=== PATIENT | female | born 1965 | race Caucasian/White ===

== ENCOUNTER 2021-12-20 17:15 | Inpatient (IN) | payer MEDICARE, OTHER ==
[~2021-12-20] VITALS: Ht 157.5 cm; Wt 75.7 kg
[2021-12-20 17:20] VITALS: BP 149/94
--- NOTE | 2021-12-20 18:31 | NUR ---
WALKED IN WITH CRUTCHES C/O L KNEE PAIN ONSET 3 WKS. PT STATES POST OP 3 WKS ON THE LEFT KNEE BUT STATES PAIN AND SWELLING WORSENING. DENIES FEVER OR CHILLS. DENIES ANY DRAINAGE. SWELLING NOTED ON THE LEFT LOWER EXT. AAOX4 ,AMBULATORY. PMH: DENIES NKA
--- NOTE | 2021-12-20 18:31 | NUR ---
PT BACK FROM XR
--- NOTE | 2021-12-20 19:20 | NUR ---
56/F C/O LEFT KNEE PAIN X3 WEEKS, REPORTS SHE HAD SURGERY 3 WEEKS AGO BUT FEELS PAIN AND SWELLING HAS WORSENED. DENIES FEVERS OR CHILLS, SWELLING NOTED FROM KNEE TO ANKLE. PMH: DENIES NKA
[2021-12-20 20:36] LABS: BASOPHILS # (AUTO) 0.1 K/uL (0.00-0.22); BASOPHILS % (AUTO) 0.9 % (0.0-2.0); EOSINOPHILS # (AUTO) 0.1 K/uL (0-0.4); EOSINOPHILS % (AUTO) 2.2 % (0.0-4.0); HEMATOCRIT 39.2 % (36-48); HEMOGLOBIN 13.1 g/dL (12.0-16.0); LYMPHOCYTES # (AUTO) 1.7 K/uL (2.5-16.5); LYMPHOCYTES % (AUTO) 26.1 % (20.5-51.1); MEAN CORPUSCULAR HEMOGLOBIN 31 pg (27-31); MEAN CORPUSCULAR HGB CONC 34 g/dL (33-37); MONOCYTES # (AUTO) 0.4 K/uL (0.8-1.0); MONOCYTES % (AUTO) 5.5 % (1.7-9.3); NEUTROPHILS # (AUTO) 4.2 K/uL (1.8-7.7); NEUTROPHILS % (AUTO) 65.3 % (42.2-75.2); PLATELET COUNT (AUTO) 136 K/uL (140-450); RED BLOOD CELL COUNT(AUTO) 4.26 MIL/uL (4.20-5.40); RED CELL DISTRIBUTION WIDTH 13.2 % (11.6-13.7); WHITE BLOOD COUNT (AUTO) 6.5 K/uL (4.8-10.8)
[2021-12-20] MEDS ORDERED: HEPARIN PER PHARMACY MC STA (20:41)
[2021-12-20] MEDS ORDERED: hePARIN / DEXT 5% PREMIX 250 ML IV ONE (20:45)
[2021-12-20 20:47] LABS: ANION GAP 10.9 (8-16); CARBON DIOXIDE 27.5 mmol/L (21-32); CREATININE 0.8 mg/dL (0.6-1.3); POTASSIUM 3.4 mmol/L (3.5-5.1)
[2021-12-20] MEDS ORDERED: LIDOCAINE 5% 1 EA PATCH TP STA (21:01)
[2021-12-20 21:02] LABS: PROTHROMBIN TIME 10.4 secs (10.8-13.4)
[2021-12-20] MEDS ORDERED: DOCUSATE SODIUM 100 MG GELCAP PO PRN (21:25)
[2021-12-20] MEDS ORDERED: guaiFENesin DM 200/20 MG-10 ML 10 ML UDC PO PRN (21:25)
[2021-12-20] MEDS ORDERED: POTASSIUM CHLORIDE 10 MEQ TABER PO PRN (21:25)
[2021-12-20] MEDS ORDERED: ZOLPIDEM 5 MG TAB PO PRN (21:25)
[2021-12-20] MEDS ORDERED: MORPHINE SULFATE 2 MG/ML SYR IVP PRN (21:25)
[2021-12-20] MEDS ORDERED: ACETAMINOPHEN 325 MG TAB PO PRN (21:25)
[2021-12-20] MEDS ORDERED: ONDANSETRON 4 MG/2 ML VIAL IM/IVP PRN (21:25)
[2021-12-20] MEDS ORDERED: HYDROcodone/APAP 7.5/325 MG 1 TAB PO PRN (21:25)
[2021-12-20 21:53] LABS: MAGNESIUM 2.1 mg/dL (1.8-2.4); PHOSPHORUS 3.7 mg/dL (2.5-4.9)
--- NOTE | 2021-12-20 22:01 | NUR ---
RT AT BEDSIDE OBTAINING EKG
--- NOTE | 2021-12-20 22:01 | NUR ---
COVID/DINESH SWAB OBTAINED AND WALKED TO LAB
[2021-12-21] MEDS: APIXABAN 2.5 MG TAB PO SCH ×2 (00:31→10:26)
--- NOTE | 2021-12-21 04:25 | NUR ---
Patient appears to be resting comfortably in bed. Vital Signs within normal limits. Respirations even and unlabored.
[2021-12-21 06:38] LABS: PROTHROMBIN TIME 11.6 secs (10.8-13.4)
--- NOTE | 2021-12-21 07:10 | NUR ---
Pt report given to KASIE ORELLANA. Transfer of care at this time.
[2021-12-21 07:19] LABS: BASOPHILS % (AUTO) 0.8 % (0.0-2.0); EOSINOPHILS # (AUTO) 0.1 K/uL (0-0.4); EOSINOPHILS % (AUTO) 2.3 % (0.0-4.0); HEMATOCRIT 36.7 % (36-48); HEMOGLOBIN 12.3 g/dL (12.0-16.0); LYMPHOCYTES # (AUTO) 1.7 K/uL (2.5-16.5); LYMPHOCYTES % (AUTO) 29.5 % (20.5-51.1); MEAN CORPUSCULAR HEMOGLOBIN 31 pg (27-31); MEAN CORPUSCULAR HGB CONC 34 g/dL (33-37); MEAN CORPUSCULAR VOLUME 91.5 fL (80-94); MONOCYTES # (AUTO) 0.3 K/uL (0.8-1.0); NEUTROPHILS # (AUTO) 3.6 K/uL (1.8-7.7); NEUTROPHILS % (AUTO) 62.4 % (42.2-75.2); PLATELET COUNT (AUTO) 136 K/uL (140-450); RED BLOOD CELL COUNT(AUTO) 4.01 MIL/uL (4.20-5.40); RED CELL DISTRIBUTION WIDTH 13.3 % (11.6-13.7); WHITE BLOOD COUNT (AUTO) 5.8 K/uL (4.8-10.8)
[2021-12-21 07:20] LABS: CARBON DIOXIDE 26.8 mmol/L (21-32); CREATININE 0.7 mg/dL (0.6-1.3); POTASSIUM 3.8 mmol/L (3.5-5.1)
[2021-12-21] MEDS ORDERED: PANTOPRAZOLE 40 MG TABEC PO SCH (09:00)
[2021-12-21] MEDS ORDERED: APIXABAN 2.5 MG TAB ONE (10:25)
--- NOTE | 2021-12-21 10:27 | NUR ---
md ny in room for pt evaluation. pt states knee pain is controlled at this time. Patient appears to be resting comfortably in bed. Vital Signs within normal limits. Respirations even and unlabored.
[2021-12-21] MEDS ORDERED: APIX5TAB PO (18:24)
[2021-12-21 18:53] VITALS: BP 111/56
--- NOTE | 2021-12-21 18:54 | NUR ---
Patient discharged with v/s stable. Written and verbal after care instructions given and explained. Patient alert, oriented and verbalized understanding of instructions. Ambulatory with . All questions addressed prior to discharge. ID band removed. Patient advised to follow up with PMD. Rx of ELIQUIS given. Patient educated on indication of medication including possible reaction and side effects. Opportunity to ask questions provided and answered.
--- NOTE | 2021-12-24 14:13 | NUR ---
LATE ENTRY- IV HEPARIN DRIP DISCONTINUED AT 2126
== END 2021-12-21 18:54 | disposition home or self-care (01) | DRG 301 ==
LOC: MED 17:15 → MMU 21:27
PROVIDERS: ADMIT Student in an Organized Health Care Education/Training Program; ATTEND Student in an Organized Health Care Education/Training Program
DX: I82.402 Acute embolism and thrombosis of unspecified deep veins of left lower extremity (principal); E87.6 Hypokalemia; R73.9 Hyperglycemia, unspecified; Z20.822 Contact with and (suspected) exposure to COVID-19; Z79.01 Long term (current) use of anticoagulants
CPT/HCPCS: 36415; 73562; 80048; 83690; 83735; 83880; 84100; 85025; 85610; 85730; 93005; 93971; 96361; 96374; 99285; J1644; J2405; J7030; Q0092

== ENCOUNTER 2021-12-25 09:19 | Inpatient (IN) | payer OTHER ==
[~2021-12-25] VITALS: Ht 157.5 cm; Wt 77.1 kg
[~2021-12-25 09:19] MED LIST: APIX5TAB PO
[2021-12-25 09:34] VITALS: BP 124/88
--- NOTE | 2021-12-25 09:37 | NUR ---
WHEELCHAIRED INTO ED C/O SOB ONSET THURSDAY. PT HAD L KNEE SX 3 WKS AGO AND WAS ADMITTED 5 DAYS AGO FOR CLOT FOUND ON LEFT KNEE. PT WAS DC BUT HAS NEW ONSET SOB SINCE THURSDAY. DENIES CP BUT STATES RIGHT RIB PAIN. ON ROOM AIR.ON MONITOR. VITALS STABLE. AAOX4, AMBULATORY WITH CRUTCHES. STATES SOB WORSE WITH MOVEMENT.
[2021-12-25 10:47] LABS: BASOPHILS # (AUTO) 0.1 K/uL (0.00-0.22); BASOPHILS % (AUTO) 1.2 % (0.0-2.0); EOSINOPHILS # (AUTO) 0.2 K/uL (0-0.4); EOSINOPHILS % (AUTO) 2.7 % (0.0-4.0); HEMATOCRIT 41.4 % (36-48); HEMOGLOBIN 13.8 g/dL (12.0-16.0); LYMPHOCYTES # (AUTO) 1.4 K/uL (2.5-16.5); LYMPHOCYTES % (AUTO) 23.8 % (20.5-51.1); MEAN CORPUSCULAR HEMOGLOBIN 31 pg (27-31); MEAN CORPUSCULAR HGB CONC 33 g/dL (33-37); MEAN CORPUSCULAR VOLUME 92.2 fL (80-94); MONOCYTES # (AUTO) 0.4 K/uL (0.8-1.0); MONOCYTES % (AUTO) 5.9 % (1.7-9.3); NEUTROPHILS % (AUTO) 66.4 % (42.2-75.2); PLATELET COUNT (AUTO) 186 K/uL (140-450); RED BLOOD CELL COUNT(AUTO) 4.49 MIL/uL (4.20-5.40); RED CELL DISTRIBUTION WIDTH 13.5 % (11.6-13.7)
[2021-12-25 11:05] LABS: PROTHROMBIN TIME 10.9 secs (10.8-13.4)
[2021-12-25 11:13] LABS: ALBUMIN 3.7 g/dL (3.4-5.0); CARBON DIOXIDE 27.9 mmol/L (21-32); CREATININE 0.8 mg/dL (0.6-1.3); POTASSIUM 4.9 mmol/L (3.5-5.1); TOTAL BILIRUBIN 0.4 mg/dL (0.0-1.0)
--- NOTE | 2021-12-25 11:27 | NUR ---
PT WENT FOR CTA
--- NOTE | 2021-12-25 11:45 | NUR ---
PT BACK FROM CTA
--- NOTE | 2021-12-25 13:30 | NUR ---
SOCHELLYA SWAB SENT TO LAB
[2021-12-25] MEDS ORDERED: SODIUM PHOS / POTASSIUM PHOS 1 PKT PDR PO PRN (13:40)
[2021-12-25] MEDS ORDERED: POTASSIUM CHLORIDE 10 MEQ TABER PO PRN (13:40)
[2021-12-25] MEDS ORDERED: ONDANSETRON 4 MG/2 ML VIAL IM/IVP PRN (13:40)
[2021-12-25] MEDS ORDERED: DOCUSATE SODIUM 100 MG GELCAP PO PRN (13:40)
[2021-12-25] MEDS ORDERED: MAGNESIUM OXIDE 400 MG TAB PO PRN (13:40)
[2021-12-25] MEDS ORDERED: MORPHINE SULFATE 2 MG/ML SYR IVP PRN (13:40)
[2021-12-25] MEDS ORDERED: HYDROcodone/APAP 5/325 MG 1 TAB TAB PO PRN (13:40)
[2021-12-25] MEDS ORDERED: ACETAMINOPHEN 325 MG TAB PO PRN (13:40)
[2021-12-25 14:32] LABS: MAGNESIUM 2.2 mg/dL (1.8-2.4); PHOSPHORUS 3.9 mg/dL (2.5-4.9)
--- NOTE | 2021-12-25 14:42 | NUR ---
ATTEMTED ABG, PT DID NOT TOLERATE. WILL TRY AGAIN LATER.
[2021-12-25 14:50] VITALS: BP 111/64
--- NOTE | 2021-12-25 14:55 | NUR ---
PT ARRIVED VIA GURNEY FROM ER TO ICU2. RECEIVED BEDSIDE REPORT FROM SHAE BAGLEY RN FOR CONTINUITY OF CARE. PT AAOX4. ON RM AIR. SR ON BEDSIDE MONITOR. 20G TO R AC, SALINE LOCK, PATENT. BOWEL SOUNDS ACTIVE. CONTINENT OF BOWEL AND BLADDER. VOIDS FREELY. AMBULATORY W CRUTCHES, L KNEE IMPAIRED. SKIN INTACT. ON STANDARD PRECAUTIONS. CALL LIGHT WITHIN REACH. SAFETY PRECAUTIONS MET. INITIAL ASSESSMENT COMPLETE. WILL CONTINUE TO CLOSELY MONITOR.
--- NOTE | 2021-12-25 14:58 | NUR ---
Patient will be admitted to care of DR. MORAN. Admited to TELE. Will go to room ICU2. Belongings list completed. Report to BAYRON FERRO.
[2021-12-25] MEDS: hePARIN / DEXT 5% PREMIX 250 ML IV SCH (15:20)
[2021-12-25 16:00] VITALS: BP 121/75
--- NOTE | 2021-12-25 17:50 | NUR ---
PT PARTNER, SEAN, VISITING AT BEDSIDE.
--- NOTE | 2021-12-25 19:24 | NUR ---
endorsed bedside report to [facility] rn for continuity of care. vss, pt in no acute distress. all questions answered.
--- NOTE | 2021-12-25 19:25 | NUR ---
RECEIVED REPORT FROM AM SHIFT KASIE VERMA.
--- NOTE | 2021-12-25 21:05 | NUR ---
PATIENT ALERT AND ORIENTED X4. ABLE TO MAKE NEEDS KNOWN. LUNGS CLEAR TO AUSCULTATION. ACTIVE BOWEL SOUNDS AND PATIENT IS ON CARDIAC DIET. CONTINENT WITH BOWEL AND BLADDER. SINUS RHYTHM ON MONITOR. IV SITE TO RAC 20 GAUGE. HEPARIN DRIP RUNNING AT 1100 IU/HR. SKIN IS INTACT. DENIES COMPLAINTS OF ANY PAIN WHEN LAYING DOWN. NEXT SCHEDULED PTT IS 29.7.
[2021-12-25 23:12] VITALS: BP 112/67
--- NOTE | 2021-12-26 00:18 | NUR ---
PATIENT'S VITALS NORMAL ON MONITOR. SLEEPING AT THIS TIME. RESPIRATIONS UNLABORED.
--- NOTE | 2021-12-26 02:41 | NUR ---
NO COMPLAINTS OF PAIN. VITALS NORMAL AT THIS TIME OF NOTE.
--- NOTE | 2021-12-26 03:38 | NUR ---
LODGING FACILITIES MANAGER AT BEDSIDE DRAWING PTT.
[2021-12-26 03:42] LABS: BASOPHILS # (AUTO) 0.1 K/uL (0.00-0.22); EOSINOPHILS # (AUTO) 0.2 K/uL (0-0.4); EOSINOPHILS % (AUTO) 3.7 % (0.0-4.0); HEMATOCRIT 39.2 % (36-48); HEMOGLOBIN 13.2 g/dL (12.0-16.0); LYMPHOCYTES # (AUTO) 1.9 K/uL (2.5-16.5); LYMPHOCYTES % (AUTO) 34.6 % (20.5-51.1); MEAN CORPUSCULAR HEMOGLOBIN 31 pg (27-31); MEAN CORPUSCULAR HGB CONC 34 g/dL (33-37); MEAN CORPUSCULAR VOLUME 91.4 fL (80-94); MONOCYTES # (AUTO) 0.4 K/uL (0.8-1.0); NEUTROPHILS % (AUTO) 53.7 % (42.2-75.2); PLATELET COUNT (AUTO) 193 K/uL (140-450); RED BLOOD CELL COUNT(AUTO) 4.29 MIL/uL (4.20-5.40); RED CELL DISTRIBUTION WIDTH 13.6 % (11.6-13.7); WHITE BLOOD COUNT (AUTO) 5.6 K/uL (4.8-10.8)
[2021-12-26 04:00] VITALS: BP 118/66
[2021-12-26 04:02] LABS: ANION GAP 13.6 (8-16); CARBON DIOXIDE 26.2 mmol/L (21-32); CREATININE 0.8 mg/dL (0.6-1.3); POTASSIUM 3.8 mmol/L (3.5-5.1)
--- NOTE | 2021-12-26 04:25 | NUR ---
PTT IS 64.6. NO CHANGE TO HEPARIN DRIP RATE PER PROTOCOL.
--- NOTE | 2021-12-26 06:33 | NUR ---
RECEIVED PATIENT FROM ICU. PATIENT IS AWAKE,ALERT AND ORIENTED. DENIES PAIN AT THIS TIME. NO DISTRESS NOTED. ABLE TO AMBULATE WITH CRUTCHES. HEPARIN DRIP AT 1100 UNITS/HR . SKIN WARM AND DRY TO TOUCH. ORIENTED TO MST ROUTINE. BED IN THE LOWEST AND LOCKED POSITION FOR SAFETY, CALL LIGHT IN REACH.
[2021-12-26 06:40] VITALS: BP 103/68
--- NOTE | 2021-12-26 06:41 | NUR ---
PATIENT TRANSFERRED TO [facility] WITH KASIE PEGUERO AND FLOWER. REPORT GIVEN TO [facility] KASIE RODRIGUEZ.
--- NOTE | 2021-12-26 07:18 | NUR ---
ENDORSED CARE TO AM RN FOR CONTINUITY OF CARE.
--- NOTE | 2021-12-26 07:30 | NUR ---
RECEIVED REPORT FROM NIGHTSHIFT NURSE. PT A/O X4. ABLE TO MAKE NEEDS KNOWN. NO SOB OR RESPIRATORY DISTRESS. ON RA. DENIES PAIN AT THIS TIME. EXPLAINED WHEN BREAKFAST TRAYS WILL BE DELIVERED. PT VERBALIZED UNDERSTANDING. CRUTCHES AT BEDSIDE. HEPARIN DRIP @ 1100 UNITS/HR PER PHARMACY. NEEDS ALL MET AT THIS TIME. SAFETY MEASURES IN PLACE.
[2021-12-26 08:00] VITALS: BP 111/73
[2021-12-26] MEDS: PANTOPRAZOLE 40 MG TABEC PO SCH (08:43)
--- NOTE | 2021-12-26 08:51 | NUR ---
PATIENT HAS BEEN SCREENED AND CATEGORIZED MODERATE NUTRITION RISK. PATIENT WILL BE SEEN WITHIN 3-5 DAYS OF ADMISSION. 12/28/21-12/30/21 REVIEWED BY LUIS FOSTER RD
--- NOTE | 2021-12-26 10:30 | NUR ---
CONTACTED MD REGARDING PT WITH BLOOD IN SPUTUM ON TISSUE PAPER. MD AT BEDSIDE WITH PT.
[2021-12-26 12:00] VITALS: BP 104/63
[2021-12-26] MEDS: HEPARIN PER PHARMACY MC PRN (13:22)
[2021-12-26] MEDS: hePARIN / DEXT 5% PREMIX 250 ML IV SCH (13:24)
--- NOTE | 2021-12-26 14:55 | NUR ---
DC PLANNING MARJORIE MET WITH PATIENT AT BEDSIDE TO COMPLETE ASSESSMENT. PATIENT REPORTS RESIDING WITH HER PARTNER AT THE ADDRESS ON FILE. PATIENT IDENTIFIED BALBIR RIVAS, SISTER IN LAW, EMERGENCY CONTACT. PATIENT DENIES HAVING AD IN PLACE AND ACCEPTED AD OFFERED BY MARJORIE. PATIENT REPORTS MEETING WITH HER PCP REGULARLY; LAST VISIT OCTOBER 2021. PATIENT REPORTS NEXT PCP VISIT IS SCHEDULED FOR SOMETIME IN MAR. PATIENT REPORTS ALSO BEING FOLLOWED BY A MALVIN LYLES DR A RESULT OF A FALL THAT OCCURRED AT HER PLACE OF EMPLOYMENT. PATIENT REPORTS VISIT WITH MALVIN CONTRERAS DR., IS SCHEDULED FOR 12/30/21. PATIENT DENIES TAKING MEDICATION AT THIS TIME, HOWEVER, REPORTS UTILIZING RX LIDOCAINE PATCHES, NEEDED FOR PAIN. PATIENT DENIES BARRIERS IN ACCESSING MEDICATIONS AND REPORTS RECEIVING MEDICATIONS FROM [facility], WHEN NEEDED. PATIENT REPORTS BARRIERS IN ADEQUATE FOOD SOURCES. PATIENT ACCEPTED EMERGENCY ASSISTANCE RESOURCES PROVIDED BY MARJORIE. PATIENT REPORTS BEING INDEPENDENT IN ALL ACTIVITIES PRIOR TO HER FALL THAT OCCURRED IN . PATIENT REPORTS RECENT SURGERY ON 11/29/21. PATIENT REPORTS CURRENT USE OF FWW AND CRUTCHES, WHEN NEEDED. PATIENT REPORTS SHE DOES NOT REQUIRE ASSISTANCE WITH ADL'S. PATIENT DENIES MH/SA HX. PATIENT REPORTS DC PLAN IS TO RETURN HOME WITH PARTNER PROVIDING TRANSPORTATION AND AIDING IN CARE, IF REQUIRED. Addendum: 12/27/21 at 1011 by Nitin SILVERMAN PER ATTENDING , PATIENT IS A POSSIBLE DC FOR 12/28. TRANSPORTATION WILL NEED TO BE SET UP WITH [facility] AT [phone] Addendum: 12/27/21 at 1055 by Nitin Connell SS PLEASE DISREGARD ADDENDUM NOTE ABOVE. MADE IN ERROR. Addendum: 12/27/21 at 1104 by Nitin Connell SS SPOKE TO PATIENT. PATIENT PROVIDED WORKERS COMP SLIVER MACHINE OPERATOR LEONIE HARRIS [phone]. PATIENT REPORTS APPT WITH WORKERS DR CRISELDA CONTRERAS DR ON 12/30 WHO WILL SET UP OUTPATIENT PT.
[2021-12-26 16:00] VITALS: BP 107/49
--- NOTE | 2021-12-26 18:48 | NUR ---
HEPARIN DRIP INFUSING @ 1100 UNITS/HR ON RAC #20. PT WITH DINNER AT BEDSIDE. AT BEDSIDE. NEEDS ALL MET. ENCOURAGE TO USE CALL LIGHT. ALL SAFETY MEASURES IN PLACE.
--- NOTE | 2021-12-26 19:26 | NUR ---
ENDORSED PLAN OF CARE TO NIGHTSHIFT NURSE.
--- NOTE | 2021-12-26 19:30 | NUR ---
RECEIVED REPORT FROM AM NURSE FOR CONTINUITY OF CARE. PT IS STABLE AWAKE A&OX4.SITTING UP IN BED EATING AND TALKING WITH VISITOR. DENIES PAIN. ON RM AIR/O2 WITH NO ACUTE DISTRESS. RR EVEN AND UNLABORED WITH EQUAL CHEST RISE. GI INTACT.L KNEE IS UP ON A PILLOW SKIN IS INTACT. IV RAC 20G INFUSING HEPARIN DRIP @11ML/HR. CRUTCHES AT BEDSIDE. L KNEE STILL SWOLLEN FROM MENISCUS SURGERY, Thu12/27/21 WILL BE 4 WEEKS. MEASURED: L KNEE IS 16.5 INCHES CIRCUMFERENCE ACROSS PATELLA. L CALF IS 13.5 INCHES AROUND. PT IS AMBULATORY WITH STANDBY ASSIST AND CONTINENT. ALL SAFETY MEASURES IN PLACE. BED IN LOW AND LOCKED POSITION. CALL LIGHT WITHIN REACH. WILL CONTINUE TO MONITOR.
[2021-12-26 20:00] VITALS: BP 134/65
--- NOTE | 2021-12-26 22:10 | NUR ---
FREQ ROUNDS. PT C/O L ARM PAIN WHEN SHE FLEXES OR BENDS HER ARM UP TOWARD HER CHEST. RN NOTICED SWELLING IN L ARM INNER ELBOW. PT STATES " IT FEELS LIKE SOMETHING IS POKING ME WHEN I FLEX/BEND MY ARM UP. " THERE IS NO PAIN WHEN I ELEVATE IT ON A PILLOW. WILL CONTINUE WITH FREQ ROUNDS.
[2021-12-27] VITALS: BP 107/74
[2021-12-27 04:00] VITALS: BP 106/72
[2021-12-27 07:13] LABS: BASOPHILS % (AUTO) 0.2 % (0.0-2.0); EOSINOPHILS # (AUTO) 0.2 K/uL (0-0.4); HEMATOCRIT 39.8 % (36-48); HEMOGLOBIN 13.2 g/dL (12.0-16.0); LYMPHOCYTES # (AUTO) 1.5 K/uL (2.5-16.5); LYMPHOCYTES % (AUTO) 35.2 % (20.5-51.1); MEAN CORPUSCULAR HEMOGLOBIN 31 pg (27-31); MEAN CORPUSCULAR HGB CONC 33 g/dL (33-37); MEAN CORPUSCULAR VOLUME 92.2 fL (80-94); MONOCYTES # (AUTO) 0.3 K/uL (0.8-1.0); MONOCYTES % (AUTO) 7.5 % (1.7-9.3); NEUTROPHILS # (AUTO) 2.3 K/uL (1.8-7.7); NEUTROPHILS % (AUTO) 53.1 % (42.2-75.2); PLATELET COUNT (AUTO) 195 K/uL (140-450); RED BLOOD CELL COUNT(AUTO) 4.32 MIL/uL (4.20-5.40); RED CELL DISTRIBUTION WIDTH 13.4 % (11.6-13.7); WHITE BLOOD COUNT (AUTO) 4.4 K/uL (4.8-10.8)
--- NOTE | 2021-12-27 07:15 | NUR ---
ENDORSED PT REPORT TO AM NURSE FOR CONTINUITY OF CARE. PT IS STABLE. RR EVEN AND UNLABORED WITH EQUAL CHEST RISE. RAC 20G IV REMAINS PATENT. HEPARIN DRIP INFUSING @11ML /HR. ALL NEEDS MET THROUGHOUT THE SHIFT.
--- NOTE | 2021-12-27 07:19 | NUR ---
RECEIVED REPORT FROM NIGHTSHIFT NURSE. PT A/O X4. ABLE TO MAKE NEEDS KNOWN. DENIES PAIN. STATES PAIN OCCURS ON L KNEE ONLY WITH PRESSURE PLACED. ALSO STATES R LOWER LOBE SHARP PAIN ONLY WITH COUGHING OR POSITIONAL. REFUSE PAIN MEDS. ON HEPARIN DRIP @ 11ML/HR. NO SOB NOTED. ON RA. CRUTCHES AT BEDSIDE. NEEDS ALL MET AT THIS TIME. ALL SAFETY MEASURES IN PLACE.
[2021-12-27 07:40] LABS: ANION GAP 12.2 (8-16); CARBON DIOXIDE 28.4 mmol/L (21-32); CREATININE 0.8 mg/dL (0.6-1.3); POTASSIUM 4.6 mmol/L (3.5-5.1)
[2021-12-27 08:00] VITALS: BP 115/75
[2021-12-27] MEDS: PANTOPRAZOLE 40 MG TABEC PO SCH (08:57)
--- NOTE | 2021-12-27 11:11 | NUR ---
PT RESTING COMFORTABLY. NO SOB OR RESPIRATORY DISTRESS. ON RA. NEEDS ALL MET AT THIS TIME. SAFETY MEASURES IN PLACE.
[2021-12-27 12:00] VITALS: BP 117/74
--- NOTE | 2021-12-27 12:31 | NUR ---
CONTACTED MD REGARDING PTT LEVEL. NO CHANGE TO ORDER PER PHARMACY PROTOCOL.
[2021-12-27] MEDS: hePARIN / DEXT 5% PREMIX 250 ML IV SCH (13:46)
[2021-12-27] MEDS: HEPARIN PER PHARMACY MC PRN (13:47)
[2021-12-27 16:00] VITALS: BP 104/53
--- NOTE | 2021-12-27 16:19 | NUR ---
P.T. NOTES D/C FROM P.T. AFTER TX, ENDORSED TO NURSING; PATIENT MAY BENEFIT W/ AMBULATION W/ CRUTCHES AD EMILIA W/ NURSE SUPERVISION.
--- NOTE | 2021-12-27 19:04 | NUR ---
ENDORSED PLAN OF CARE TO NIGHTSCAFT NURSECRISTOBAL
--- NOTE | 2021-12-27 19:10 | NUR ---
RECEIVED REPORT FROM FIDEL NEUMANN FOR CONTINUITY OF CARE. PT IS STABLE AWAKE A&OX4. ON RM AIR/O2 WITH NO ACUTE DISTRESS. RR EVEN AND UNLABORED WITH EQUAL CHEST RISE. GI INTACT. ATE 100% DINNER. PT'S SKIN IS INTACT. PT AMBULATES WITH CRUTCHES AND IS CONTINENT. ALL SAFETY MEASURES IN PLACE. BED IN LOW AND LOCKED POSITION. CALL LIGHT WITHIN REACH. WILL CONTINUE TO MONITOR.
[2021-12-27 20:00] VITALS: BP 115/66
--- NOTE | 2021-12-27 22:32 | NUR ---
KRISTOFER CAGLE. VISUALLY ASSESSED PT DENIES PAIN AT THIS TIME. RAC 20G IV INFUSING HEPARIN AT 11CC/HR. STANDBY ASSIST PT AMBULATED TO BATHROOM WITH CRUTCHES, VOIDED. BACK TO BED NO ACUTE DISTRESS. ALL SAFETY MEASURES IN PLACE.
[2021-12-28 00:01] VITALS: BP 113/74
--- NOTE | 2021-12-28 02:30 | NUR ---
FREQ ROUNDS. VISUALLY ASSESSED PT ASLEEP IN BED RR EVEN AND UNLABORED WITH EQUAL CHEST RISE. NAD.CALL LIGHT WITHIN REACH.
[2021-12-28 04:00] VITALS: BP 105/64
--- NOTE | 2021-12-28 05:00 | NUR ---
FREQ ROUNDS. VISUALLY ASSESSED PT RESTING. RR EVEN AND UNLABORED WITH EQUAL CHEST RISE. DENIES PAIN. ALL SAFETY MEASURES IN PLACE. CALL LIGHT WITHIN REACH.
--- NOTE | 2021-12-28 07:10 | NUR ---
ENDORSED TO AM NURSE SNOW SHEN FOR CONTINUITY OF CARE. PT IS ON HEPARIN DRIP@ 11C/HR. PTT BLOOD DRAW @11AM TODAY. PT IS STABLE. ALL NEEDS MET THROUGHOUT THE SHIFT.
--- NOTE | 2021-12-28 07:11 | NUR ---
RECEIVED REPORT FORM LOGGING CREW SUPERVISOR NURSE FOR CONTINUITY OF CARE. PT IS AWAKE. RESPIRATIONS EVEN AND UNLABORED ON RA. NO DISTRESS NOTED. ON ETHANOL QUALITY LEADER. SKIN IS INTACT, DRY AND WARM TO TOUCH. IV SITE AT RAC 20G INFUSING HEPARIN DRIP. CRUTCHES AT BEDSIDE. CALL LIGHT WITHIN REACH. SAFETY PRECAUTIONS IN PLACE. WILL CONTINUE TO MONITOR.
[2021-12-28 08:00] VITALS: BP 111/71
[2021-12-28] MEDS: PANTOPRAZOLE 40 MG TABEC PO SCH (08:19)
--- NOTE | 2021-12-28 08:19 | NUR ---
ADMINISTERED SCHEDULED MORNING MED. PT TEACHING ABOUT MED GIVEN. PT VERBALIZED UNDERSTANDING.
--- NOTE | 2021-12-28 08:50 | NUR ---
PT CHECKED AND SEEN BY DR CONTRERAS.
[2021-12-28] MEDS ORDERED: APIXABAN 2.5 MG TAB PO SCH (09:00)
[2021-12-28 12:00] VITALS: BP 113/68
--- NOTE | 2021-12-28 12:05 | NUR ---
DID ROUNDS. PT SITTING IN BED, EATING LUNCH. WITH FAMILY MEMBER AT BEDSIDE. NO DISTRESS NOTED. BREATHING EVEN AND UNLABORED. NO COMPLAINTS OF PAIN. CALL LIGHT WITHIN REACH. SAFETY PRECAUTIONS IN PLACE. WILL CONTINUE TO MONITOR.
[2021-12-28 13:04] VITALS: BP 113/68
--- NOTE | 2021-12-28 13:58 | NUR ---
PT DC HOME. PT WHEELED BY [facility] STAFF VIA WHEELCHAIR AT FRONT LOBBY. DC PAPERS DISCUSSED WITH PT. PT VERBALIZED UNDERSTANDING. REMOVED IV CATHETER INTACT. REMOVED TELE MONITOR AND ID WRIST BAND. ALL BELONGINGS TAKEN UPON DC. PT IS STABLE.
== END 2021-12-28 14:00 | disposition home or self-care (01) | DRG 176 ==
LOC: MED 09:19 → MIC 13:45 → MTU 12-26 06:30
PROVIDERS: ADMIT Hospitalist; ATTEND Hospitalist
DX: I26.99 Other pulmonary embolism without acute cor pulmonale (principal); I82.402 Acute embolism and thrombosis of unspecified deep veins of left lower extremity; R65.10 Systemic inflammatory response syndrome (SIRS) of non-infectious origin without acute organ dysfunction; R31.9 Hematuria, unspecified; D70.4 Cyclic neutropenia; E11.65 Type 2 diabetes mellitus with hyperglycemia; Z20.822 Contact with and (suspected) exposure to COVID-19; Z88.1 Allergy status to other antibiotic agents; Z86.718 Personal history of other venous thrombosis and embolism
CPT/HCPCS: 36415; 71275; 80048; 80053; 83036; 83735; 83880; 84100; 84484; 85025; 85610; 85730; 87081; 93005; 93971; 97112; 97116; 97163-GP; 97530; 99291; J1644; Q0092; Q9967

== ENCOUNTER 2021-12-30 11:58 | Emergency (ER) | payer OTHER ==
[~2021-12-30] VITALS: Ht 157.5 cm; Wt 74.8 kg
[2021-12-30 12:01] VITALS: BP 128/63
--- NOTE | 2021-12-30 12:05 | NUR ---
PT W/C ASSISTED TO BED 9
--- NOTE | 2021-12-30 12:23 | NUR ---
X-Ray at bedside.
--- NOTE | 2021-12-30 12:33 | NUR ---
DR POLANCO AT BEDSIDE EVALUATING PT
--- NOTE | 2021-12-30 12:41 | NUR ---
56 Y/O FEMALE BIB SELF C/O SOB, NOTED ACCESSORY MUSCLE USE, TACHYPNEIC, SATTING AT 99% RA. PT STATES SHE WAS REFERRED BY HER PCP OFFICE THIS MORNING FOR SOB, O2 IN TRIAGE 98%, O2 AT BEDSIDE 99% RA. PATIENT SEEN AND ADMITTED HERE LAST WEEK FOR PE, DENIES CP. PMH: HX DVT AND PE ALLERGIES: CIPROFLOXACIN RX: ELIQUIS, HEPARIN
[2021-12-30 13:31] LABS: BASOPHILS % (AUTO) 0.6 % (0.0-2.0); EOSINOPHILS # (AUTO) 0.2 K/uL (0-0.4); EOSINOPHILS % (AUTO) 3.3 % (0.0-4.0); HEMATOCRIT 41.4 % (36-48); HEMOGLOBIN 14.2 g/dL (12.0-16.0); LYMPHOCYTES # (AUTO) 1.6 K/uL (2.5-16.5); LYMPHOCYTES % (AUTO) 26.3 % (20.5-51.1); MEAN CORPUSCULAR HEMOGLOBIN 31 pg (27-31); MEAN CORPUSCULAR HGB CONC 34 g/dL (33-37); MEAN CORPUSCULAR VOLUME 90.7 fL (80-94); MONOCYTES # (AUTO) 0.3 K/uL (0.8-1.0); MONOCYTES % (AUTO) 5.4 % (1.7-9.3); NEUTROPHILS # (AUTO) 3.9 K/uL (1.8-7.7); NEUTROPHILS % (AUTO) 64.4 % (42.2-75.2); PLATELET COUNT (AUTO) 211 K/uL (140-450); RED BLOOD CELL COUNT(AUTO) 4.56 MIL/uL (4.20-5.40); RED CELL DISTRIBUTION WIDTH 13.8 % (11.6-13.7)
[2021-12-30 13:56] LABS: ALBUMIN 3.8 g/dL (3.4-5.0); ANION GAP 18.2 (8-16); CARBON DIOXIDE 23.4 mmol/L (21-32); CREATININE 0.8 mg/dL (0.6-1.3); POTASSIUM 3.6 mmol/L (3.5-5.1); TOTAL BILIRUBIN 0.5 mg/dL (0.0-1.0)
[2021-12-30] MEDS ORDERED: NACL 0.9% 1,000 ML IV ONE (14:15)
[2021-12-30] MEDS ORDERED: AZIT250T4 PO (16:34)
[2021-12-30 16:46] VITALS: BP 112/64
--- NOTE | 2021-12-30 16:46 | NUR ---
Patient discharged with v/s stable. Written and verbal after care instructions given and explained. Patient alert, oriented and verbalized understanding of instructions. Ambulatory with steady gait. All questions addressed prior to discharge. ID band removed. Patient advised to follow up with PMD. Rx of AZITHROMYCIN given. Patient educated on indication of medication including possible reaction and side effects. Opportunity to ask questions provided and answered.
== END 2021-12-30 16:46 | disposition home or self-care (01) ==
LOC: MED 11:58
DX: J18.9 Pneumonia, unspecified organism (principal); Z88.1 Allergy status to other antibiotic agents; Z79.899 Other long term (current) drug therapy; Z98.890 Other specified postprocedural states
CPT/HCPCS: 36415; 71045; 71275; 80053; 83880; 84484; 85025; 85379; 93005; 96360; 99285; J7030; Q0092; Q9967